=== PATIENT | female | born 1950 | race Two or more races ===

== ENCOUNTER 2016-09-18 13:12 | Day surgery (SDC) | payer OTHER ==
[~2016-09-18] VITALS: Ht 167.6 cm; Wt 85.0 kg
[2016-09-18] VITALS (8 sets, daily range): BP systolic 101–172; BP diastolic 81–98; PULSE 80–93; RESP 13–18; O2SAT 98–100
[~2016-09-18 13:12] MED LIST: HYDR200T5 PO; HYDR25TA4 PO; LISI-571 PO; Lactated Ringer's 1,000 ML IV ONE; ONDA4TAB9 PO; OXYC-407 PO; PANT40TA2 PO
[2016-09-18] MEDS ORDERED: Succinylcholine Chloride 20 mg/mL 5 mL Inj ONE (13:13)
[2016-09-18] MEDS ORDERED: Rocuronium 10 mg/mL 5 mL Inj ONE (13:13)
[2016-09-18] MEDS ORDERED: Propofol 10,000 mCg/mL 20 mL Inj ONE (13:13)
[2016-09-18] MEDS ORDERED: Dexamethasone 4 mg/mL Inj ONE (13:13)
[2016-09-18] MEDS ORDERED: Ondansetron 2 mg/mL 2 mL Inj ONE (13:13)
[2016-09-18] MEDS ORDERED: fentaNYL-PF 50 mCg/mL 2 mL Inj ONE (13:13)
[2016-09-18] MEDS ORDERED: Lactated Ringer's 1,000 ML IV SCH (14:06)
[2016-09-18] MEDS ORDERED: Lactated Ringer's 500 ML IV PRN (14:06)
[2016-09-18] MEDS ORDERED: MetoCLOpramide 5 mg/mL 2 mL Inj IVPUSH PRN (14:10)
[2016-09-18] MEDS ORDERED: fentaNYL-PF 50 mCg/mL 2 mL Inj IVPUSH PRN (14:10)
[2016-09-18] MEDS ORDERED: Labetalol 5 mg/mL 4 mL Inj IV PRN (14:10)
[2016-09-18] MEDS ORDERED: Ondansetron 2 mg/mL 2 mL Inj IVPUSH PRN (14:10)
[2016-09-18] MEDS ORDERED: Phenylephrine 10,000 mCg/mL Inj IVPUSH PRN (14:10)
[2016-09-18] MEDS ORDERED: EPHEDrine Sulfate 50 mg/mL Inj IVPUSH PRN (14:10)
[2016-09-18] MEDS ORDERED: Atropine 0.4 mg/mL Inj IVPUSH PRN (14:10)
[2016-09-18] MEDS ORDERED: hydrALAZINE 20 mg/mL Inj IVPUSH PRN (14:10)
[2016-09-18] MEDS ORDERED: HYDROmorphone 1 mg/mL Inj IVPUSH PRN (14:10)
--- NOTE | 2016-09-18 14:40 | PCM.HPANE ---
Patient Data Surgeon Admitting Provider: Attending Provider:Cait Linares MD Primary Care Physician:Kenya Palmer Other Provider:David Bertrand Anesthesia Reason for Visit Epigastric Pain, Acute Pancreatitis Ht/WT & BMI Height (Feet): 5 Height (Inches): 6 Weight (Kilograms): 85 Body Mass Index 30.00 Allergies Coded Allergies: No Known Allergies (Verified Allergy, Unknown, 09/18/16) Past Anesthesia History Anesthesia History: Denies:: Abnormal Airway, Anesthesia Reactions, Difficult Intubation, Fam Anesthesia Reaction, Fam Malignant Hypertherm, Malignant Hyperthermia Diabetes History Hx Diabetes?: No MRSA MRSA: No Medications Hypertension Medication: Yes Home Meds Incl Beta John: No Reported Medications Hydrochlorothiazide 25 Mg Ntzoal02.5 Mg PO DAILY 30 Days Ref 0 05/16/[address] (Protonix)40 Mg [id number] Mg PO DAILY Ref 0 11/29/15 Hydroxychloroquine Sulfate 200 Mg [id number] Mg PO DAILY 30 Days Ref 0 08/11/15 Lisinopril 5 Mg Tablet5 Mg PO DAILY #30 TABLET Ref 0 08/11/15 Discontinued Scripts Oxycodone HCl/Acetaminophen 5-325 (Endocet 5-325)1 Each Tablet1-2 Tablet PO Q4H PRN For Pain #14 TABLET Prov:Jose Juan Connors MD 05/16/16 Ondansetron ODT (Zofran ODT)4 Mg Tablet4 Mg PO Q4H PRN For Nausea #20 TABLET Prov:Jose Juan Connors MD 05/16/16 History History of ENT Problems?: No HEENT History: Denies:: Abnormal Airway Difficult Intubation Hx of Heart Problems?: Yes Cardiovascular History: Positive for:: Hypertension Denies:: Congestive Heart Failure Other Cardiac History: No history of CAD/CHF Hx of Respiratory Problem?: No Respiratory History: Denies:: Asthma Emphysema Oxygen Administration Tuberculosis Use of C-PAP Machine Hx Neurologic Problems?: No Neurological History: Denies:: CVA Hx of GI Problems?: No Hx of Problems?: No Female Hx: Denies:: Currently Skin History: Denies:: History Skin Disorders? Hx Musculoskeletal Problems?: Yes Hx of Psycho/Social Problems?: No Hx Surgeries?: Yes (HYST,) Hx Any Other Health Problems?: Yes Other History: Denies:: Thyroid Disease History Blood Transfusions: Denies:: Blood Transfuse Reaction Blood Transfusions Hx Diabetes: No Hx Alcohol Use: NoHx Substance Use: No Smoking Status: Never Smoker Have You Smoked inLast 12 mo: No Stop/Bang DENISSE Risk Assessment: Low Risk, <3 Yes Risk Assessment Category Category 1A: Patient has history of documented sleep apnea, and HAS NOT received any narcotic, sedative or anesthesia administration during this stay. Category 1B: Patient has history of documented sleep apnea, and HAS received any narcotic , sedative or anesthesia administration during this stay Category 2: Patient has SUSPECTED Obstructive Sleep Apnea, and HAS received any narcotic , sedative or anesthesia administration during this stay. Category 3: Patient has SUSPECTED Obstructive Sleep Apnea and HAS NOT received narcotic, sedative or anesthesia administration during this stay. Category 4: Outpatient in Procedural Areas with known sleep apnea or who screen positive for High Risk via the STOP/BANG questionnaire. Exam Exam Vital Signs Vital Signs Date Time Temp Pulse Resp B/P Pulse Ox O2 Delivery O2 Flow Rate FiO2 09/18/16 13:35 84 16 135/84 99 Room Air General Appearance: Alert, Oriented X3, Cooperative, No Acute Distress HEENT/AIRWAY: MP 2, Neck Movement (normal without limitation), Other (very prominent incisors) Lungs: Clear to Auscultation, Normal Air Movement Heart: Exam Unremarkable, Regular Rate/Rhythm, No Murmurs/Rubs/Gallops Plan Impression Patient chart reviewed, patient interviewed and anesthestic plan with risks, benefits, and alternatives discussed, and informed consent obtained. NPO Status: 01/09 at 2100 ASA Physical Status: ASA2 Mod Systemic Disease Anesthetic Plan: GA (GETA given possible ERCP) Bene/Risks/Altern/Consents: Yes HP Complete Prior to Induction: Yes Eligio Mendez MD Sep 18, 2016 14:06
--- NOTE | 2016-09-18 15:28 | PCM.ANEP2 ---
Post Anesthesia Evaluation ASA/CMS Post Anesthesia VS in Patient's Normal Range?: Yes Resp Stable; Airway Patent?: Yes CV Function & Hydration Stable: Yes Mental Status Recovered?: Yes Pain control Satisfactory?: Yes N/V Control Satisfactory?: Yes Eligio Mendez MD Sep 18, 2016 15:28
--- NOTE | 2016-09-18 15:28 | PCM.ANEP1 ---
Post Anesthesia Phase 1 PACU Phase 1 Assessment Vital Signs Vital Signs Date Time Temp Pulse Resp B/P Pulse Ox O2 Delivery O2 Flow Rate FiO2 09/18/16 15:24 36.1 90 18 101/86 100 Simple Mask 10 09/18/16 13:35 84 16 135/84 99 Room Air Anesthetic Administered: GA Level of Alertness: Awake, talking RAHMAN's with Equal Strength: Yes Pain: No Nausea or Vomiting: No Oxygen Delivery: Simple Mask Lungs: Clear to Auscultation, Normal Air Movement Eligio Mendez MD Sep 18, 2016 15:27
--- NOTE | 2016-09-18 16:26 | ENDO ---
[address] [address] ENDOSCOPY PROCEDURE PATIENT: RUBEN KIRBY : 1950 MR#: [id number] ADMIT: 09/18/2016 JOB ID: [id number] PROCEDURE: 1. Esophagogastroduodenoscopy. 2. Endoscopic ultrasound. INDICATION FOR PROCEDURE: Patient with a history of pancreatitis who recently underwent an MRCP which showed a potential shelf-like filling defect in the distal common bile duct suspicious for neoplasm versus stopped choledocholithiasis. INSTRUMENT USED: GIF H 180 J as well as a GF ECT 180 linear echoendoscope. ANESTHESIA: Please see Dr. Eligio Mendez's anesthesia report for details regarding general anesthesia. The patient was placed under general anesthesia as there was a possibility that this may turn into an ERCP if biliary pathology was seen. PROCEDURE DETAILS: After informed consent was obtained, the patient was brought to the GI suite, where she was placed under general anesthesia. She was placed in the left lateral decubitus position. A bite block was placed and standard esophagogastroduodenoscopy scope was inserted through the bite block and advanced under direct visualization to the second portion of the duodenum without difficulty. Normal appearing duodenal bulb, first and second portion. Normal-appearing pylorus and antrum. Normal appearing distal gastric body. On retroflexed views in the gastric body there was erythema noted in the fundus of the stomach suggestive of mild gastritis. The gastroesophageal junction was slightly irregular but otherwise unremarkable. Normal appearing esophagus. No findings to explain abdominal pain. Next, the linear echo endoscope was then introduced through bite block and advanced without difficulty to the second portion of the duodenum. Linear echo endoscopic imaging demonstrated the following: Normal-appearing common bile duct measuring approximately 2.8 mm. No hyperechoic structures were noted within the bile duct. I was able to follow bile duct to the ampulla. The pancreas appeared to be hyperechoic, suggestive of fatty pancreas, but otherwise unremarkable. The pancreatic duct was difficult to visualize. Flow was seen in the portal vein. The splenic artery and vein appeared unremarkable. Examined portions of the left lobe of the liver were unremarkable. The gallbladder was seen there appeared to be sludge in the dependent portion but no obvious stones seen. The celiac axis appeared normal. The left adrenal gland appeared unremarkable. IMPRESSION: 1. No common bile duct stones seen. 2. The common bile duct appeared to be normal in course and caliber. 3. Findings suggestive of sludge in the gallbladder. RECOMMENDATIONS: 1. Consider HIDA scan for further evaluation of abdominal pain. 2. Follow up with Dr. Jc West in [facility]. COMPLICATIONS: None. ESTIMATED BLOOD LOSS: Zero.
[2016-11-17] MEDS ORDERED: CEPH500C PO (10:30)
== END 2016-09-18 23:59 | disposition home or self-care (01) ==
LOC: END 13:12
PROVIDERS: ATTEND Internal Medicine Gastroenterology
DX: K29.70 Gastritis, unspecified, without bleeding (principal); K82.9 Disease of gallbladder, unspecified; K85.90 Acute pancreatitis without necrosis or infection, unspecified
CPT/HCPCS: 43237; J0330; J1100; J2405; J3010; J7120

== ENCOUNTER 2016-11-15 00:26 | Emergency (ER) | payer OTHER ==
[~2016-11-15] VITALS: Ht 167.6 cm; Wt 81.8 kg
[~2016-11-15 00:26] MED LIST changes: -Lactated Ringer's 1,000 ML IV ONE; -ONDA4TAB9 PO; -OXYC-407 PO
[2016-11-15 00:29] VITALS: BP 146/85; PULSE 92; RESP 18; O2SAT 99
--- NOTE | 2016-11-15 00:45 | ED.REPORT ---
HPI- Female Date of Service Nov 15, 2016 ED Provider: Dr. Amol Burnett The patient is a 66 year old female w/ a hx of HTN who presents to the ED due to an increase in urinary frequency today. Per the patient's daughter, she has been needing to urinate every 5 minutes. Symptoms have increased during the night. Associated symptoms include weakness, slight burning with urination and fatigue. She recently returned from a trip to [place]. Patient denies fever and mild back pain. She has an appointment with her PCP on December 01. She has had bladder infections in the past, most recently several years ago. She has not been on any recent antibiotics. Nursing Notes Stated Complaint: FREQUENT URINATION Chief Complaint: Female Abdominal Pain Nursing Notes Reviewed: Yes ([employer] not reconciled) Allergies: Coded Allergies: No Known Allergies (Verified Allergy, Unknown, 09/18/16) Scheduled Hydrochlorothiazide (Hydrochlorothiazide) 25 Mg Tablet 12.5 MG PO DAILY Hydroxychloroquine Sulfate (Hydroxychloroquine Sulfate) 200 Mg Tablet 200 MG PO DAILY Lisinopril (Lisinopril) 5 Mg Tablet 5 MG PO DAILY Pantoprazole DR (Protonix) 40 Mg Tablet 40 MG PO DAILY Scheduled PRN Phenazopyridine (Phenazopyridine) 200 Mg Tablet 200 MG PO TID PRN PRN dysuria General Time Seen by MD: 00:44 Chief Complaint Urinary urgency Hx Obtained From: Patient, Daughter Arrived By: Walk-in Sudden in Onset?: Yes Onset Occurred: Yesterday Symptom Duration: Since onset Severity: Current: No pain currently Recent Healthcare: No recent doctor visit, No recent hospitalization Similar Sx Previous: No Past Medical History Past Medical History Arthritis Kidney stones Labile hypertenion (family reports blood pressure very labile, often very high - but that hypotension occurs w/medication adjustments) Abd pain - Abd MRI, Endoscopy, initial concern for ?pancreatis (none on MRI) 09/2016 Past Surgical History Hysterectomy Right laparoscopic oophorectomy EGD for biliary US Family History asthma, otherwise negative Smoking History Never Smoker Social History Alcohol Use: Denies alcohol use Other Social History: Good social support, Local resident Ambulatory Status Independent Review of Systems Constitutional: Reports: Fatigue, Denies: Fever Female: Reports: Dysuria, Urinary frequency, Urinary urgency Musculoskeletal: Denies: Back pain Neurologic: Reports: Weakness Complete sys rev & neg: except as marked. Physical Exam Initial Vital Signs Vital Signs (First) Date Time Temp Pulse Resp B/P Pulse Ox O2 Delivery O2 Flow Rate FiO2 11/15/16 00:29 36.0 92 18 146/85 99 Room Air Initial VS: Reviewed, Vital signs normal Head / Eyes: Atraumatic, Normocephalic, PERRL ENT: Mucous membranes moist, Conjunctiva normal Neck: Supple, Non-tender Respiratory: Breath sounds normal, Clear to auscultation Cardiovascular: Regular rate & rhythm, Heart sounds normal Abdomen / GI: Soft, Non-tender, No guarding, No rebound Extremities: Vascular intact, Neuro intact, No swelling Skin: Warm, Dry Neurologic: Alert, Oriented Female Genitourinary: Exam deferred Interpretation & Diagnostics Lab Results Interpretation Test 11/15/16 01:40 Urine Color Straw (YELLOW) Urine Appearance Cloudy (CLEAR,HAZY) Urine pH 6.0 (5.0-8.0) Urine Specific [place] 1.005 (1.003-1.035) Urine Protein Tracemg/dL (NEG,TRACE) Urine Glucose (UA) Negativemg/dL (NEGATIVE) Urine Ketones Negativemg/dL (NEGATIVE) Urine Occult Blood Large (NEGATIVE) Urine Nitrite Negative (NEGATIVE) Urine Bilirubin Negative (NEGATIVE) Urine Urobilinogen Normalmg/dL (NORMAL) Urine Leukocyte Esterase Moderate (NEGATIVE) Urine RBC 11-50/hpf (0-2) Urine WBC >50/hpf (0-5) Urine Epithelial Cells Occasional/hpf (NONE-MOD) Urine Crystals None seen (NONE SEEN) Urine Bacteria Few/hpf (NONE-FEW) Urine Hyaline Casts None/lpf (NONE) Urine Granular Casts None seen (NONE SEEN) Urine Waxy Casts None seen (NONE SEEN) Urine Red Blood Cell Casts None seen (NONE SEEN) Urine White Blood Cell Casts None seen (NONE SEEN) Urine Mucus None seen (None Seen) Urine Trichomonas None seen (NONE SEEN) Urine Yeast None (NONE SEEN) Urinalysis Comment None Urine Culture Reflexed Indicated Hold Urine Received (Received) Lab Results Interpretation: UA positive, culture pending Re-Eval/Medical Decision Med Decision/Clinical Course This is a 66-year-old female presents with classic symptoms of a urinary tract infection. She reports urinary urgency, frequency, and mild dysuria. She denies fever, nausea, vomiting, kidney pain. She has not been on recent antibiotics, she has no prior history of pyelonephritis. She is a distant history of kidney stones without any symptoms to suggest stone pathology. She recently has returned from a trip from [place]. She appears nontoxic. She is mildly hypertensive but abnormal vitals. A urinalysis is positive. She has been started on antibiotics and has been offered phenazopyridine. Precautions reviewed. Patient is discharged in good condition. Source of Hx: Old records Differential Diagnosis: Positive: Urinary tract infection, Negative: , complete, , incomplete, , inevitable, Discomfort of , Ectopic preg, ruptured, Ectopic , Pyelonephritis, acute, Tubo-ovarian abscess Counseled Regarding: Diagnosis, Lab results, Need for follow-up, When/why to return to ED Discharge & Departure Impression: Primary Impression: UTI (urinary tract infection) Urinary tract infection type: site unspecified Hematuria presence: without hematuria Qualified Code: N39.0 - Urinary tract infection, site not specified Disposition: Home Discharge Condition All VS Reviewed: Yes Condition: Stable Additional Instructions: 1. Take the antibiotic trimethoprim/sulfa 1 tablet twice a day for 5 days (You will have pills leftover). 2. IF needed take the medication phenazopyridine 200mg three times a day (as needed) for discomfort with urination. NOTE: Turns urine ORANGE. 3. Symptoms are expected to improve rapidly over the next several days. 4. Return if new or worsening symptoms, or if he developed fever, nausea vomiting, etc. 5. Keep the appointment in early December with her primary care physician for recheck your blood pressure, and urinary symptoms. Referrals: Kenya Palmer (PCP) Siva Attestation Portion of this note were transcribed by Parisa Caruso. I, Dr. Burnett, personally performed the history, physical exam, and medical decision-making: I reviewed and confirmed the accuracy for the information in the transcribed note. Signed by: siva Varela, 11/15/16 0200 copies to: Kenya Palmer Matthew F MD Nov 15, 2016 00:45 Parisa Caruso Nov 15, 2016 00:54
[2016-11-15] MEDS ORDERED: Phenazopyridine 97.5 mg Tablet PO ONE (00:55)
[2016-11-15] MEDS ORDERED: PHEN-777 PO (00:55)
[2016-11-15] MEDS ORDERED: _Trimethoprim-Sulfa 160/800 mg Tablet PO SCH (00:55)
[2016-11-15 02:00] LABS: APPEARANCE,URINE CLOUDY (CLEAR,HAZY); COLOR,URINE STRAW (YELLOW); OCCULT BLOOD,URINE LARGE (NEGATIVE); UROBILINOGEN,URINE NORMAL (NORMAL)
[2016-11-17] MEDS ORDERED: CEPH500C PO (10:30)
== END 2016-11-15 02:31 | disposition home or self-care (01) ==
LOC: SED 00:26
DX: N39.0 Urinary tract infection, site not specified (principal); B96.20 Unspecified Escherichia coli [E. coli] as the cause of diseases classified elsewhere; I10 Essential (primary) hypertension